=== PATIENT | female | born 1950 | race Caucasian/White ===

== ENCOUNTER → 2016-04-10 | Outpatient (CLI) | payer OTHER ==
--- NOTE | 2016-04-10 17:28 | DX ---
Lumbar Spine, Two Views History: M96.1, post laminectomy syndrome. Findings: Interspinous expanders at the L3-L4 and L4-L5 levels. Severe thoracic dextroscoliosis parti ally visualized. Compensatory severe lumbar levoscoliosis approximately 65 degrees also noted. No com pression fractures. Moderate disk space narrowing from L1-L2 through L4-L5. Facet arthropathy especia lly at L3-L4 and L4-L5. Impressions 1. Thoracic dextroscoliosis and lumbar levoscoliosis. 2. Interspinous expanders at the L3-L4 and L4-L5 levels.
== END ==
LOC: FIMAGING 15:19
PROVIDERS: ATTEND Orthopaedic Surgery Orthopaedic Surgery of the Spine
DX: M96.1 Postlaminectomy syndrome, not elsewhere classified (principal); M41.84 Other forms of scoliosis, thoracic region; M41.86 Other forms of scoliosis, lumbar region

== ENCOUNTER 2016-06-03 12:30 | Emergency (ER) | payer OTHER ==
[2016-06-03 13:12] VITALS: BP 134/77; PULSE 66; RESP 16; TEMP 98.1; O2SAT 98
[2016-06-03] MEDS ORDERED: SKIN ADHESIVE (DERMABOND) 1 EACH TP ONE ×2 (13:42→13:44)
--- NOTE | 2016-06-03 13:58 | UCPHY ---
H & P Time Seen by Provider: 06/03/16 13:21 Patient Type: Established HPI/ROS: Chief Complaint: Persistent laceration to right thumb HPI: The patient presents to the ED for evaluation of a persistent laceration to her right thumb which occurred 3-4 weeks ago while using a wood box maker. The patient sustained a laceration involving only the superficial dermal tissues. She has had no redness, pain or discharge. She presents to the ED because there has continued to be gapping of the soft tissues. REVIEW OF SYSTEMS: Neuro: no headache, numbness, weakness Musculoskeletal: as above Skin: As above Smoking Status: Never smoked Physical Exam: General: No acute distress Right hand: Approximately 1 cm superficial laceration involving the distal tip of the right thumb. No erythema, no swelling, no tenderness Neuro: Sensation intact to light touch Vascular: Normal capillary refill Constitutional: Initial Vital Signs Temperature (C) 36.7 C 06/03/16 13:04 Heart Rate 66 06/03/16 13:04 Respiratory Rate 16 06/03/16 13:04 Blood Pressure 134/77 H 06/03/16 13:04 O2 Sat (%) 98 06/03/16 13:04 O2 Delivery Mode Room Air Allergies/Adverse Reactions: amoxicillin trihydrate [From Augmentin] Allergy (Unknown, Verified 06/03/16 12: 59) potassium clavulanate [From Augmentin] Allergy (Unknown, Verified 06/03/16 12:59 ) codeine Allergy (Verified 06/03/16 12:59) Vomiting Home Medications: Medication Instructions Recorded Denosumab [Prolia] 60 mg SQ .[id number] 06/12/15 Cholecalciferol Vit D3 [Vitamin D3 2,000 - 6,000 units PO DAILY 10/24/15 2000 units tab (OTC)] Diazepam [Valium 5 MG (*)] 5 mg PO HS PRN #30 tab 11/18/15 LORazepam [Ativan (*)] 0.5 mg PO HS PRN #0 tab 11/18/15 Lisinopril [Zestril 5 mg (*)] 2.5 mg PO DAILY #0 tab 11/18/15 Zolpidem Tartrate [Ambien 5MG (*)] 10 mg PO HS PRN #0 tab 11/18/15 Medical Decision Making ED Course/Re-evaluation: The patient presents for delayed primary closure of a very superficial laceration to her right thumb. The patient had the laceration copiously cleaned. I did apply a thin strip of derma jernigan for closure. The patient will be discharged home with customary aftercare instructions. Procedure: Laceration repair with skin glue Verbal consent was obtained from the patient. The 1 cm laceration on the right thumb. The wound was irrigated and cleaned per protocol. There were no deep structures involved. No tendon injury was identified. The wound was repaired with tissue adhesive. The procedure was performed by myself. Differential Diagnosis: Differential diagnosis considered includes cellulitis, laceration, neurovascular injury Departure - Departure Disposition: Home, Routine, Self-Care Clinical Impression: Laceration of right thumb Condition: Good Instructions: Skin Adhesive Care (ED) Additional Instructions: 1. Please return to the emergency department for any redness, pain, fever or other concerns. 2. Please keep laceration covered with a clean dry dressing such as a Band-Aid. Referrals: LISA JEONG [Primary Care Provider] - As per Instructions - PQRS PQRS Measurement: 134: Depression screening and followup, PRIME MD-PHQ2 (12 years and older) Over the last 2 weeks, how often have you been bothered by any of the following problems? 1. Feeling down, depressed, or hopeless? 2. Little interest or pleasure in doing things? Patient answered no to both 1 and 2 130: Documentation of medications. Reviewed all patient medications, doses, route and frequency. 226: Do you smoke? No. 47: 65 and older: Advanced care planning. Patient has advanced directive.
== END 2016-06-03 14:27 | disposition home or self-care (01) ==
LOC: CED 12:30
PROC: 0HQFXZZ Repair Right Hand Skin, External Approach (ICD-10-PCS; principal; 2016-06-03)
DX: S61.011A Laceration without foreign body of right thumb without damage to nail, initial encounter (principal); W27.0XXA Contact with workbench tool, initial encounter
CPT/HCPCS: 12001; G0463

== ENCOUNTER 2016-06-23 10:33 | Emergency (ER) | payer OTHER ==
[2016-06-23 11:15] VITALS: BP 101/68; PULSE 88; RESP 20; TEMP 97.9; O2SAT 98
--- NOTE | 2016-06-23 12:48 | UCPHY ---
H & P Time Seen by Provider: 06/23/16 11:40 Patient Type: Established HPI/ROS: This patient presents with a chief complaint of a productive cough which has been present for the past 6 weeks. She feels a tickle in her throat which makes her cough. She denies any chest pain, shortness of breath or fever. She has been quite fatigued and has had some intermittent sore throat and intermittent nasal congestion. REVIEW OF SYSTEMS: Constitutional: Fatigue, no fever Eyes: No complaints ENT: Intermittent sore throat, intermittent nasal congestion Respiratory: Cough without shortness of breath. Sometimes productive of a colorless sputum Cardiac: No chest pain Gastrointestinal: Not addressed Genitourinary: Not addressed Musculoskeletal: No myalgias Skin: No rash Neurological: No headache Smoking Status: Former smoker Constitutional: Initial Vital Signs Temperature (C) 36.6 C 06/23/16 11:12 Heart Rate 88 06/23/16 11:12 Respiratory Rate 20 06/23/16 11:12 Blood Pressure 101/68 06/23/16 11:12 O2 Sat (%) 98 06/23/16 11:12 O2 Delivery Mode Room Air Allergies/Adverse Reactions: amoxicillin trihydrate [From Augmentin] Allergy (Unknown, Verified 06/23/16 11: 09) potassium clavulanate [From Augmentin] Allergy (Unknown, Verified 06/23/16 11:09 ) codeine Allergy (Verified 06/23/16 11:09) Vomiting Home Medications: Medication Instructions Recorded Denosumab [Prolia] 60 mg SQ .[id number] 06/12/15 Cholecalciferol Vit D3 [Vitamin D3 2,000 - 6,000 units PO DAILY 10/24/15 2000 units tab (OTC)] Diazepam [Valium 5 MG (*)] 5 mg PO HS PRN #30 tab 11/18/15 LORazepam [Ativan (*)] 0.5 mg PO HS PRN #0 tab 11/18/15 Lisinopril [Zestril 5 mg (*)] 2.5 mg PO DAILY #0 tab 11/18/15 Zolpidem Tartrate [Ambien 5MG (*)] 10 mg PO HS PRN #0 tab 11/18/15 Medical Decision Making - Diagnostics Imaging: A chest x-ray shows no evidence of infiltrate or anything else that would cause a chronic cough. Differential Diagnosis: I find nothing in this patient that would suggest bacterial illness or any other cause of a subacute cough such as bronchospasm or mass. Departure - Departure Disposition: Home, Routine, Self-Care Clinical Impression: Scoliosis (and kyphoscoliosis), idiopathic Acute bronchitis Qualifiers: Bronchitis organism: unspecified organism Qualified Code(s): J20.9 - Acute bronchitis, unspecified Condition: Good Instructions: Acute Bronchitis (ED) Additional Instructions: If your symptoms persist for more than 1 week you should be re-evaluated by her primary care physician. Keep herself well hydrated but do not force herself to eat. Activity and diet as tolerated. Referrals: LISA JEONG [Primary Care Provider] - As per Instructions - PQRS PQRS Measurement: Not applicable
== END 2016-06-23 13:07 | disposition home or self-care (01) ==
LOC: CED 10:33
DX: J20.9 Acute bronchitis, unspecified (principal); Z87.891 Personal history of nicotine dependence
CPT/HCPCS: 71020; G0463

== ENCOUNTER → 2016-07-15 | Outpatient (CLI) | payer OTHER ==
[~2016-07-15] MED LIST: GADOBUTROL 10 ML VIAL IVP ONE
== END ==
LOC: FIMAGING 08:09
PROVIDERS: ATTEND Physical Medicine & Rehabilitation Pain Medicine
DX: M99.73 Connective tissue and disc stenosis of intervertebral foramina of lumbar region (principal); M48.06 Spinal stenosis, lumbar region; M89.38 Hypertrophy of bone, other site; M51.26 Other intervertebral disc displacement, lumbar region; M51.27 Other intervertebral disc displacement, lumbosacral region
CPT/HCPCS: 72158; A9585

== ENCOUNTER → 2016-10-03 | Outpatient (CLI) | payer OTHER | LOC: BRMIMAGING 14:15 | PROVIDERS: ATTEND Internal Medicine | DX: M81.0 Age-related osteoporosis without current pathological fracture (principal) ==

== ENCOUNTER → 2017-01-28 | Outpatient (CLI) | payer OTHER | LOC: CIMAGING 14:43 | PROVIDERS: ATTEND Family Medicine | DX: M41.9 Scoliosis, unspecified (principal); R07.81 Pleurodynia; R07.89 Other chest pain; M89.9 Disorder of bone, unspecified | CPT/HCPCS: 71020-PO; 71100-PO; 72072-PO; 85378-PO ==

== ENCOUNTER → 2017-03-07 | Outpatient (CLI) | payer OTHER | LOC: FIMAGING 12:37 | PROVIDERS: ATTEND Orthopaedic Surgery Sports Medicine | DX: M94.20 Chondromalacia, unspecified site (principal); M76.31 Iliotibial band syndrome, right leg ==

== ENCOUNTER 2017-03-28 13:24 | Emergency (ER) | payer OTHER ==
--- NOTE | 2017-03-28 13:48 | CPEKG ---
Heart Rate: 67 RR Interval: 896 P-R Interval: 140 QRSD Interval: 80 QT Interval: 404 QTC Interval: 427 P [place]: 81 QRS [place]: 16 T Wave [place]: 59 EKG Severity - NORMAL ECG - EKG Impression: SINUS RHYTHM Electronically Signed By: Leonel Rushing 31-Mar-2017 08:55:51
[2017-03-28 13:57] LABS: PLATELET COUNT 460 10^3/uL (150-400)
--- NOTE | 2017-03-28 14:51 | EDPHY ---
H & P Stated Complaint: sent from [facility] for cardiac workup, dizziness Time Seen by Provider: 03/28/17 13:32 HPI/ROS: CHIEF COMPLAINT: palpitations, shortness of breath, possible vasculitis HISTORY OF PRESENT ILLNESS: This is a 66-year-old female with significant history of osteoporosis, MGUS, and a recent diagnosis of Waldenstrom Macroglobulemia who presents with 3 week history of palpitations, shortness of breath and recently has noticed burning pain and redness and swelling in her right knee. Patient contacted her primary care physician and was referred to the emergency department for further evaluation of palpitations. Patient describes episodes where she feels that her heart is pounding, somewhat rapid associated with some shortness of breath which she describes mostly as anxiety that she can't make her heart rate slowed down. She denies any dyspnea on exertion. She denies any exercise intolerance. With the palpitations she feels somewhat lightheaded but has not had syncope. Patient also describes feeling somewhat fatigued recently. She has no known history of coronary artery disease although she describes having a nuclear stress test and cardiac catheterization in 2003 for syncopal symptoms. Patient has otherwise been feeling well. She denies any fevers or chills. No chest pain. No vomiting or diarrhea. No urinary complaints. No headache. REVIEW OF SYSTEMS: Aside from elements discussed in the HPI, a comprehensive 10-point review of systems was reviewed and is negative. PAST MEDICAL HISTORY: Osteoporosis, waldenstrom macroglobulinemia, rheumatoid arthritis, hypertension SOCIAL HISTORY: Nonsmoker. VITAL SIGNS Reviewed by me. Heart rate 72. GENERAL: Thin, female, no obvious respiratory distress. HEENT: Atraumatic. Eyes: No icterus, no injection. Mouth: moist mucous membranes. No erythema or lesions. Neck: supple with no adenopathy. LUNGS: Clear to auscultation bilaterally, no wheezes, rhonchi or rales. CARDIAC: Regular rate and rhythm, no rubs, murmurs or gallops. ABDOMEN: Soft, nontender, nondistended, bowel sounds normal. BACK: No CVA tenderness. EXTREMITIES: No trauma. Right knee: No swelling, erythema, or warmth. No tenderness palpation in the popliteal fossa. Calf compartments are soft bilaterally. Negative Homans sign bilaterally. No peripheral edema. NEURO: Alert and oriented, grossly nonfocal. SKIN: Warm and dry, no rash. PSYCHIATRIC: Normal mentation, no agitation. - Medical/Surgical History Hx Asthma: No Hx Chronic Respiratory Disease: No Hx Diabetes: No Hx Cardiac Disease: No Hx Renal Disease: No Hx Cirrhosis: No Hx Alcoholism: No Hx HIV/AIDS: No Hx Splenectomy or Spleen Trauma: No Other PMH: med hx-osteoporosis,RA,MGUS,HTN,severe scoliosis. surg-bunionectomy- rt ft,basal and squamous cell, joint replacement on 1st 2 fingers R hand, WM lymphoma, laminectomy - Social History Smoking Status: Former smoker Constitutional: Initial Vital Signs Temperature (C) 36.6 C 03/28/17 13:33 Heart Rate 73 03/28/17 13:33 Respiratory Rate 16 03/28/17 13:33 Blood Pressure 144/101 H 03/28/17 13:33 O2 Sat (%) 100 03/28/17 13:33 O2 Delivery Mode Room Air Allergies/Adverse Reactions: amoxicillin trihydrate [From Augmentin] Allergy (Unknown, Verified 03/28/17 13: 37) potassium clavulanate [From Augmentin] Allergy (Unknown, Verified 03/28/17 13:37 ) codeine Allergy (Verified 03/28/17 13:37) Vomiting Home Medications: Medication Instructions Recorded LORazepam [Ativan (*)] 0.5 mg PO HS PRN #0 tab 11/18/15 Estrace 03/28/17 Fish Oil 1,000 mg Capsule 03/28/17 Forteo 03/28/17 MAGNESIUM 03/28/17 Mk7 03/28/17 Medical Decision Making - Diagnostics EKG Interpretation: 12-LEAD EKG: Please see the full report in [facility]. My interpretation: Sinus rhythm, no ST or T-wave changes Imaging Results: Imaging Impressions Chest X-Ray 03/28/17 14:09 Impression: 1. No active cardiopulmonary disease seen. 2. Scoliosis Extremity Venous Study 03/28/17 14:09 Impression: No deep venous thrombosis in the right lower extremity. Findings discussed with Tamica Mendoza MD at 15:10 hour, 03/28/2017. Imaging: Discussed imaging studies w/ garment steamer Radiologist ED Course/Re-evaluation: 66-year-old female presents to the emergency department with reporting palpitations described as a pounding and rapid heart rate which has been intermittent for the last 3-4 weeks. Electrolytes are normal, CBC is normal, patient did recently have diagnosis of Marc straw macroglobulinemia but is not currently taking any medications. Her platelets are 460. Troponin is negative. D-dimer is negative. Chest x- ray is unremarkable. Ultrasound of the right lower extremity does not demonstrate a reason for the patient's discomfort in the popliteal fossa, there is no Kilpatrick cyst or DVT. Patient reports to me now that she took lisinopril 2.5 mg last night. She has not been on her lisinopril for several months the, having been taken off of it when she was placed on opiates for chronic pain. Currently she is no longer taking opiate medications. We discussed the fact that elevated blood pressure may have added to her sensation of palpitations. I think she should begin taking lisinopril 2.5 mg again each evening. Patient is in agreement with this. She will follow up with the primary care physician as soon as possible. Patient was referred back to her primary care physician to have a Holter monitor placed. Differential Diagnosis: Differential diagnoses for the patient's sensation of palpitations was considered including but not limited to sinus tachycardia, PACs, PVCs, SVT, atrial fibrillation, atrial flutter, anxiety, panic attack. - Data Points Laboratory Results: Laboratory Results 03/28/17 13:35 03/28/17 13:35 03/28/17 03/28/17 03/28/17 13:35 13:35 13:35 WBC RBC Hgb Hct MCV MCH MCHC RDW Plt Count MPV Neut % (Auto) Lymph % (Auto) [place] % (Auto) Eos % (Auto) Baso % (Auto) Nucleat RBC Rel Count Absolute Neuts (auto) Absolute Lymphs (auto) Absolute Monos (auto) Absolute Eos (auto) Absolute Basos (auto) Absolute Nucleated RBC Immature Gran % Immature Gran # D-Dimer < 0.27 ug/mLFEU ug/mLFEU (0.00-0.50) Sodium Potassium Chloride Carbon Dioxide Anion Gap BUN Creatinine Estimated GFR Glucose Calcium Total Bilirubin 1.1 mg/dL mg/dL (0.1-1.4) Conjugated Bilirubin 0.2 mg/dL mg/dL (0.0-0.5) Unconjugated Bilirubin 0.9 mg/dL mg/dL (0.0-1.1) AST 20 IU/L IU/L (14-46) ALT 26 IU/L IU/L (9-52) Alkaline Phosphatase 72 IU/L IU/L (38-126) Troponin I Total Protein 7.9 g/dL g/dL (6.3-8.2) Albumin 4.4 g/dL g/dL (3.5-5.0) Lipase 180 IU/L IU/L (23-300) TSH Pending 03/28/17 03/28/17 03/28/17 13:35 13:35 13:35 WBC 12.32 10^3/uL H 10^3/uL (3.80-9.50) RBC 4.53 10^6/uL 10^6/uL (4.18-5.33) Hgb 14.2 g/dL g/dL (12.6-16.3) Hct 41.3 % % (38.0-47.0) MCV 91.2 fL fL (81.5-99.8) MCH 31.3 pg pg (27.9-34.1) MCHC 34.4 g/dL g/dL (32.4-36.7) RDW 12.4 % % (11.5-15.2) Plt Count 460 10^3/uL H 10^3/uL (150-400) MPV 9.3 fL fL (8.7-11.7) Neut % (Auto) 64.6 % % (39.3-74.2) Lymph % (Auto) 24.2 % % (15.0-45.0) [place] % (Auto) 10.1 % % (4.5-13.0) Eos % (Auto) 0.5 % L % (0.6-7.6) Baso % (Auto) 0.3 % % (0.3-1.7) Nucleat RBC Rel Count 0.0 % % (0.0-0.2) Absolute Neuts (auto) 7.96 10^3/uL H 10^3/uL (1.70-6.50) Absolute Lymphs (auto) 2.98 10^3/uL 10^3/uL (1.00-3.00) Absolute Monos (auto) 1.24 10^3/uL H 10^3/uL (0.30-0.80) Absolute Eos (auto) 0.06 10^3/uL 10^3/uL (0.03-0.40) Absolute Basos (auto) 0.04 10^3/uL 10^3/uL (0.02-0.10) Absolute Nucleated RBC 0.00 10^3/uL 10^3/uL (0-0.01) Immature Gran % 0.3 % % (0.0-1.1) Immature Gran # 0.04 10^3/uL 10^3/uL (0.00-0.10) D-Dimer Sodium 141 mEq/L mEq/L (134-144) Potassium 4.2 mEq/L mEq/L (3.5-5.2) Chloride 97 mEq/L mEq/L (97-110) Carbon Dioxide 26 mEq/l mEq/l (22-31) Anion Gap 18 mEq/L H mEq/L (8-16) BUN 16 mg/dL mg/dL (7-23) Creatinine 0.8 mg/dL mg/dL (0.6-1.0) Estimated GFR > 60 Glucose 97 mg/dL mg/dL (70-100) Calcium 10.3 mg/dL mg/dL (8.5-10.4) Total Bilirubin 1.2 mg/dL mg/dL (0.1-1.4) Conjugated Bilirubin Unconjugated Bilirubin AST 21 IU/L IU/L (14-46) ALT 26 IU/L IU/L (9-52) Alkaline Phosphatase 70 IU/L IU/L (38-126) Troponin I < 0.012 ng/mL ng/mL (0.000-0.034) Total Protein 8.1 g/dL g/dL (6.3-8.2) Albumin 4.5 g/dL g/dL (3.5-5.0) Lipase TSH Departure - Departure Disposition: Home, Routine, Self-Care Clinical Impression: Heart palpitations Hypertension Qualifiers: Hypertension type: unspecified Qualified Code(s): I10 - Essential (primary) hypertension Condition: Fair Instructions: Heart Palpitations (ED) Additional Instructions: I recommend that you begin taking her lisinopril again. Lisinopril 2.5 mg each evening. I recommend that you follow up with [facility]. A Holter monitor may be needed. I also recommend that you follow up by phone with your primary care physician on Saturday or soon as possible. If he continued to have significant sensation of palpitations especially palpitations associated with lightheadedness, fainting, chest pain, vomiting, or other concerns, you may return to the emergency department or seek care urgently. Referrals: LISA JEONG [Primary Care Provider] - As per Instructions (Please follow up with Dr. Jeong tomorrow by phone. Follow-up for further evaluation of your palpitations next week.) Jeffery Montoya MD [Medical Doctor] - As per Instructions (Please follow up with a physician at [facility] as soon as possible. Call their office for an appointment. Be sure they know this is an emergency department follow-up visit and that you have been having palpitations.)
[2017-03-28] MEDS ORDERED: NS 500 ML IV ONE (15:40)
[2017-03-28 16:44] VITALS: BP 122/74; PULSE 67; RESP 18; TEMP 98.2; O2SAT 97
--- NOTE | 2017-04-02 08:27 | CPEKG ---
Heart Rate: 66 RR Interval: 909 P-R Interval: 143 QRSD Interval: 80 QT Interval: 412 QTC Interval: 432 P [place]: 0 QRS [place]: 24 T Wave [place]: 50 EKG Severity - NORMAL ECG - EKG Impression: SINUS RHYTHM Electronically Signed By: Joseph Fonseca 03-Apr-2017 11:40:10
== END 2017-03-28 16:42 | disposition home or self-care (01) ==
LOC: CED 13:24
DX: R00.2 Palpitations (principal); I10 Essential (primary) hypertension; M79.661 Pain in right lower leg; E86.9 Volume depletion, unspecified; Z87.891 Personal history of nicotine dependence
CPT/HCPCS: 71020-PO; 80053-PO; 80076-PO; 83690-PO; 84443-PO; 84484-PO; 85025-PO; 85378-PO; 93971-PO

== ENCOUNTER → 2017-05-21 | Outpatient (CLI) | payer OTHER | LOC: CIMAGING 10:16 | PROVIDERS: ATTEND Internal Medicine | DX: R05 Cough (principal); Z98.1 Arthrodesis status | CPT/HCPCS: 36415-PO; 71046-PO; 80053-PO; 85025-PO ==

== ENCOUNTER → 2017-05-22 | Outpatient (CLI) | payer OTHER | LOC: CRFLAB 10:13 | PROVIDERS: ATTEND Internal Medicine | DX: J40 Bronchitis, not specified as acute or chronic (principal) ==

== ENCOUNTER → 2017-08-28 | Outpatient (CLI) | payer OTHER | LOC: BHFA 14:00 | PROVIDERS: ATTEND Internal Medicine Cardiovascular Disease | DX: R01.1 Cardiac murmur, unspecified (principal); F41.9 Anxiety disorder, unspecified; R20.0 Anesthesia of skin; M79.605 Pain in left leg; M79.604 Pain in right leg; I11.9 Hypertensive heart disease without heart failure; I43 Cardiomyopathy in diseases classified elsewhere ==

== ENCOUNTER → 2017-09-17 | Outpatient (CLI) | payer OTHER | LOC: BHFA 13:15 | PROVIDERS: ATTEND Internal Medicine Cardiovascular Disease | DX: R01.1 Cardiac murmur, unspecified (principal) ==

== ENCOUNTER → 2017-09-20 | Outpatient (CLI) | payer OTHER | LOC: BHFA 15:30 | PROVIDERS: ATTEND Internal Medicine Cardiovascular Disease | DX: M79.606 Pain in leg, unspecified (principal); R20.0 Anesthesia of skin; I10 Essential (primary) hypertension ==

== ENCOUNTER → 2018-05-30 | Outpatient (CLI) | payer OTHER | LOC: FIMAGING 12:43 | PROVIDERS: ATTEND Family Medicine | DX: M54.6 Pain in thoracic spine (principal); M41.84 Other forms of scoliosis, thoracic region; M41.86 Other forms of scoliosis, lumbar region; M51.36 Other intervertebral disc degeneration, lumbar region; M48.061 Spinal stenosis, lumbar region without neurogenic claudication; M43.16 Spondylolisthesis, lumbar region; R07.81 Pleurodynia; R91.8 Other nonspecific abnormal finding of lung field; K76.89 Other specified diseases of liver; R22.2 Localized swelling, mass and lump, trunk; R20.0 Anesthesia of skin; M25.519 Pain in unspecified shoulder; I73.89 Other specified peripheral vascular diseases | CPT/HCPCS: 71250; 72157; 72158; A9585 ==